=== PATIENT | male | born 1965 | race Caucasian/White ===

== ENCOUNTER → 2020-11-30 | Outpatient (CLI) | payer OTHER ==
[~2020-11-30] MED LIST: ACETAMINOPHEN TAB 500 MG TAB PO STA; BAMLANIVIMAB (EUA) 700 MG, ETESEVIMAB (EUA) 1,400 MG in SODIUM CHLORIDE 0.9% 50 ML IVPB ONE; IBUPROFEN 600 MG TAB PO STA; SODIUM CHLORIDE 0.9% 50 ML IVPB ONE; SODIUM CHLORIDE 0.9% 500 ML 500 ML in EMPTY BAG 1 BAG IV PRN
--- NOTE | 2020-11-30 14:49 | ED ---
General Adult HPI - General Chief complaint: Shortness of Breath Stated complaint: Covid+, headache, fever Time Seen by Provider: 11/30/20 13:00 Source: patient, RN notes reviewed, old records reviewed Mode of arrival: ambulatory Limitations: no limitations - History of Present Illness Initial comments: This is a 55-year-old male who presents emergency department because he is COVID. His primary medical care doctor states he qualifies for monoclonal antibodies. Patient does have high blood pressure and he is older than 55. Patient states he's got an occasional cough but no shortness of breath. Patient states he gets the chills occasionally takes Motrin but other than that he feels pretty good. Patient states his symptoms started Monday. Review of Systems ROS Statement: Those systems with pertinent positive or pertinent negative responses have been documented in the HPI. ROS Other: All systems not noted in ROS Statement are negative. Past Medical History Past Medical History: Hypertension History of Any Multi-Drug Resistant Organisms: None Reported Past Surgical History: No Surgical Hx Reported Past Psychological History: No Psychological Hx Reported Smoking Status: Never smoker Past Alcohol Use History: Occasional Past Drug Use History: None Reported General Exam - General Exam Comments Initial Comments: GENERAL: Patient is well-developed and well-nourished. Patient is nontoxic and well- hydrated and is in mild distress. ENT: Neck is soft and supple. No significant lymphadenopathy is noted. Oropharynx is clear. Moist mucous membranes. Neck has full range of motion without eliciting any pain. EYES: The sclera were anicteric and conjunctiva were pink and moist. Extraocular movements were intact and pupils were equal round and reactive to light. Eyelids were unremarkable. PULMONARY: Unlabored respirations. Good breath sounds bilaterally. No audible rales rhonchi or wheezing was noted. CARDIOVASCULAR: There is a regular rate and rhythm without any murmurs gallops or rubs. ABDOMEN: Soft and nontender with normal bowel sounds. SKIN: Skin is clear with no lesions or rashes and otherwise unremarkable. NEUROLOGIC: Patient is alert and oriented x3. Cranial nerves II through XII are grossly intact. Motor and sensory are also intact. Normal speech, volume and content. Symmetrical smile. MUSCULOSKELETAL: Normal extremities with adequate strength and full range of motion. LYMPHATICS: No significant lymphadenopathy is noted PSYCHIATRIC: Normal psychiatric evaluation. Limitations: no limitations Course Vital Signs 11/30/20 13:45 Temperature 97.5 F L Pulse Rate 87 Respiratory 18 Rate Blood Pressure 140/89 O2 Sat by Pulse 97 Oximetry Medical Decision Making - Medical Decision Making Patient will be going to the monoclonal antibody clinic to get monoclonal antibodies. Disposition Clinical Impression: COVID-19 Disposition: ADMITTED IP TO THIS HOSP Referrals: Almas Hooper MD [Primary Care Provider] - 1-2 days Time of Disposition: 14:48
[2020-11-30 15:18] VITALS: RESP 16
[2020-11-30 16:46] VITALS: BP 141/94; PULSE 71; TEMP 99
== END | disposition home or self-care (01) ==
LOC: PROCWHC3 12:38 → EC 12:38 → EDSTATUS 15:06
PROVIDERS: ATTEND Emergency Medicine
DX: U07.1 COVID-19 (principal); I10 Essential (primary) hypertension
CPT/HCPCS: 99285 ×2; Q0245; M0245

== ENCOUNTER → 2021-09-30 | Outpatient (CLI) | payer OTHER ==
[2021-10-01 13:09] LABS: Coronavirus SARS CoV-2 Not Detected (Not Detected)
== END | disposition home or self-care (01) ==
LOC: LABWHC1 12:14
PROVIDERS: ATTEND Surgery Plastic and Reconstructive Surgery
DX: Z20.822 Contact with and (suspected) exposure to COVID-19 (principal)
CPT/HCPCS: U0003; C9803; U0005

== ENCOUNTER → 2021-10-04 | Day surgery (SDC) | payer OTHER ==
[2021-09-28 15:52] VITALS: BMI 28.7
[~2021-10-04] MED LIST changes: -ACETAMINOPHEN TAB 500 MG TAB PO STA; -BAMLANIVIMAB (EUA) 700 MG, ETESEVIMAB (EUA) 1,400 MG in SODIUM CHLORIDE 0.9% 50 ML IVPB ONE; -IBUPROFEN 600 MG TAB PO STA; +LACTATED RINGERS 1,000 ML IV SCH; +LIDOCAINE 1% (10MG/ML) FOR IV START INTRADERMA PRN; +LIDOCAINE 1% INJ 10MG/ML (20 ML MDV) ONE; +PROPOFOL 10 MG/ML 20 ML VIAL IV ONE; -SODIUM CHLORIDE 0.9% 50 ML IVPB ONE; -SODIUM CHLORIDE 0.9% 500 ML 500 ML in EMPTY BAG 1 BAG IV PRN
[2021-10-04 07:16] VITALS: TEMP 97.3
--- NOTE | 2021-10-04 07:36 | P.GSHP ---
History of Present Illness H&P Date: 10/04/21 CHIEF COMPLAINT: Colon screen HISTORY OF PRESENT ILLNESS: The patient is a 56-year-old male who presents for colon screen. Lower endoscopy was offered for further evaluation and management. PAST MEDICAL HISTORY: Please see list. PAST SURGICAL HISTORY: Please see list. MEDICATIONS: Please see list. ALLERGIES: Please see list. SOCIAL HISTORY: No illicit drug use FAMILY HISTORY: No reports of Crohn disease or ulcerative colitis. REVIEW OF ORGAN SYSTEMS: CONSTITUTIONAL: No reports of fevers or chills. PHYSICAL EXAM: VITAL SIGNS: Stable GENERAL: Well-developed pleasant in no acute distress. HEENT: No scleral icterus. Extraocular movements grossly intact. Moist buccal mucosa. NECK: Supple without lymphadenopathy. CHEST: Unlabored respirations. Equal bilateral excursions. CARDIOVASCULAR: Regular rate and rhythm. Distal 2+ pulses. ABDOMEN: Soft, nontender, nondistended. MUSCULOSKELETAL: No clubbing, cyanosis, or edema. ASSESSMENT: 1. Colon screen. PLAN: 1. Recommend proceeding with a lower endoscopy Past Medical History Past Medical History: Hyperlipidemia, Hypertension Additional Past Medical History / Comment(s): Hx. of HTN History of Any Multi-Drug Resistant Organisms: None Reported Past Surgical History: No Surgical Hx Reported Additional Past Surgical History / Comment(s): Colonoscopy Past Anesthesia/Blood Transfusion Reactions: No Reported Reaction Smoking Status: Never smoker - Past Family History Mother Family Medical History: Cancer Additional Family Medical History / Comment(s): Skin Father Family Medical History: Cancer Additional Family Medical History / Comment(s): Thyroid Medications and Allergies Home Medications Medication Instructions Recorded Confirmed Type No Known Home Medications 09/28/21 09/28/21 History Allergies Allergy/AdvReac Type Severity Reaction Status Date / Time No Known Allergies Allergy Verified 10/04/21 07:15 Surgical - Exam Vital Signs Temp Pulse Resp BP Pulse Ox 97.3 F L 66 16 140/84 98 10/04/21 07:15 10/04/21 07:15 10/04/21 07:15 10/04/21 07:15 10/04/21 07:15
--- NOTE | 2021-10-04 07:54 | P.PCN ---
Date of Procedure: 10/04/21 Description of Procedure: PREOPERATIVE DIAGNOSIS: Colonoscopy screening. Family history colon cancer POSTOPERATIVE DIAGNOSIS: Colonoscopy screening. Family history colon cancer Internal and external hemorrhoids, grade 2 OPERATION: Colonoscopy to the cecum, ileocecal valve and appendiceal orifice. SURGEON: Iraida Mathews MD. ANESTHESIA: MAC. INDICATIONS: The patient is a 56-year-old female who presents for colonoscopy screening. Last colonoscopy over 16 years ago. Benefits and risks were described and informed consent was obtained. DESCRIPTION OF PROCEDURE: The patient had undergone Sutab prep. The patient had been brought into the operating room and laid in the left lateral decubitus position. After adequate intravenous sedation, the rectum was examined with 2% lidocaine jelly. External hemorrhoids were present. The rectal tone was within normal limits. No lesions were palpated in the rectal vault. An Olympus colonoscope was advanced until the cecum, ileocecal valve and appendiceal orifice were clearly viewed. The prep was excellent. No scattered diverticulosis was present. No colonic polyps were found. No evidence of focal colitis was found. Retroflexion of the scope demonstrated grade 2 internal hemorrhoids without active bleeding or inflammation. The colon was desufflated. The patient had tolerated the procedure well. Withdrawal time was over 6 minutes. FINDINGS: Aronchick preparation quality scale 1 (1-5) Internal hemorrhoids, grade 2 External prolapsed hemorrhoids, grade 2 No arteriovenous malformations. No large diverticulosis No adenomatous polyps. No focal colitis. RECOMMENDATIONS: Lower endoscopy in 2026 due to high-risk familial history Plan - Discharge Summary Discharge Rx Participant: No New Discharge Prescriptions: Continue No Known Home Medications Discharge Medication List No Known Home Medications 09/28/21 [History] Follow up Appointment(s)/Referral(s): Iraida Mathews MD [STAFF PHYSICIAN] - As Needed Patient Instructions/Handouts: *Surgery [facility] - (Anesthesia) Endoscopy Discharge Instructions Activity/Diet/Wound Care/Special Instructions: Repeat colonoscopy in 5 years2026 Discharge Disposition: HOME SELF-CARE
[2021-10-04 08:08] VITALS: BP 115/76; PULSE 59; RESP 16
== END | disposition home or self-care (01) ==
LOC: ORWHC2ENDO 06:58
PROVIDERS: ATTEND Surgery Plastic and Reconstructive Surgery
DX: Z12.11 Encounter for screening for malignant neoplasm of colon (principal); K64.1 Second degree hemorrhoids; K64.4 Residual hemorrhoidal skin tags; Z80.0 Family history of malignant neoplasm of digestive organs; E78.5 Hyperlipidemia, unspecified; I10 Essential (primary) hypertension; Z98.890 Other specified postprocedural states; Z80.8 Family history of malignant neoplasm of other organs or systems
CPT/HCPCS: J2001; J2704; G0105

== ENCOUNTER → 2022-03-16 | Outpatient (CLI) | payer OTHER ==
--- NOTE | 2022-03-16 18:41 | XR ---
EXAMINATION TYPE: XR chest 2V DATE OF EXAM: 03/16/2022 COMPARISON: None HISTORY: 56-year-old male [id number] TECHNIQUE: Frontal and lateral views FINDINGS: Heart normal size. Aorta and pulmonary vasculature within normal limits. There is some deformity to t he right lateral fifth and sixth ribs that could be on a postsurgical basis and should be correlated clinically. No consolidation or pleural effusion. IMPRESSION: Some apparent deformity to the right lateral fifth and sixth rib that could be on a postsurgical post traumatic basis. Correlate clinically. If no such history, consider CT evaluation for further charac terization. No acute process otherwise seen.
== END | disposition home or self-care (01) ==
LOC: RADXRMAIN 12:19
PROVIDERS: ATTEND Family Medicine
DX: R05.3 Chronic cough (principal)
CPT/HCPCS: 71046

== ENCOUNTER → 2022-05-03 | Outpatient (CLI) | payer OTHER ==
--- NOTE | 2022-05-04 08:36 | CT ---
EXAMINATION TYPE: CT chest wo/w con DATE OF EXAM: 05/03/2022 COMPARISON: 03/16/2022 chest x-ray HISTORY: Deformity of chest and rib found of prior chest xray done on 03-16-22 CT DLP: 942.2 mGycm, Automated exposure control for dose reduction was used. CONTRAST: Performed injected with 100cc mL of Isovue 300. TECHNIQUE: Axial images were obtained at 5 mm thick sections. Reconstructed images are reviewed on Suda computer in the coronal plane. Study is performed without and with intravenous contrast. FINDINGS: Portion of the thyroid visualized is normal. No suspicious lung nodules or focal infiltrates are present. No enlarged mediastinal or hilar adenopathy is evident. The ascending aorta diameter at the level o f the main pulmonary artery is 3.9 cm. The main pulmonary artery diameter at the bifurcation is 2.8 cm. Minimal coronary artery calcification is present. There is some mild medial deviation of the right sixth rib. This correlates with the chest x-ray find ing. No acute osseous abnormality is evident. No suspicious expansile lesions are evident. No lytic o r sclerotic lesions are evident. Limited CT sections are obtained through the upper abdomen. Abdomen is essentially unremarkable. IMPRESSIONS: 1. No acute pulmonary process. 2. Some mild medial deviation of the right sixth rib corresponding to the abnormality on chest x-ray which appears chronic.
== END | disposition home or self-care (01) ==
LOC: RADCTMAIN 17:17
PROVIDERS: ATTEND Family Medicine
DX: M95.4 Acquired deformity of chest and rib (principal)
CPT/HCPCS: 71270; Q9967